=== PATIENT | male | born 1950 | race Caucasian/White ===

== ENCOUNTER → 2023-01-06 09:34 | Outpatient (REF) | payer MEDICARE, SELFPAY ==
--- NOTE | 2023-01-06 09:41 | CA_ITS ---
Transthoracic Echocardiogram Patient (Last, First, Middle): Kris Saenz, Gender: Male Date of : 1950 Age: 72 Procedure Date: 01/06/2023 Procedure Type: Transthoracic Echocardiogram Location: [facility] Height: 177.8 cm Weight: 86.18 kg BSA: 2.04 m2 Heart Rate: 65 bpm BP: 135 / 60 mmHg [employer] Sales Representative: ARTHUR Sheppard MD: Danish Merino MD Mop Man: Prem Araiza MD Symptoms: I48.0 AFIB Study Quality: Fair ECG Rhythm: Sinus Conclusions: - 1. Technically limited study due to poor parasternal views although with definity contrast apical views are of adequate quality 2. Normal LV systolic function with LVEF of 65-70% with mild LVH with pseudonormal filling pattern 3. Mildly dilated left atrium 4. Moderate aortic stenosis with mean gradient of 20 mmHg 5. No gross pericardial effusion Findings Procedure Information Contrast agent, definity, is being given per protocol without apparent complications. Left Ventricle Normal left ventricular size and systolic function. There is mildly increased left ventricular wall thickness. The visually estimated ejection fraction is between 65-70%. There is no evidence of regional wall motion abnormalities. Spectral Doppler is indicative of a pseudonormal filling pattern. E/E prime ratio is between 8 and 15 consistent with indeterminate filling pressures. Right Ventricle The right ventricle was not well visualized. There is normal right ventricular systolic function. Atria The left atrium is mildly dilated. Interatrial shunt cannot be excluded. The right atrium was not well visualized. Aortic Valve The aortic valve was not well visualized. There is moderate calcification of the aortic valve. There is moderate aortic valve stenosis. The peak aortic gradient is 32 mmHg.The mean gradient is 20 mmHg. The aortic valve area is 1.33 cm2. There is no aortic valve regurgitation. Mitral Valve The mitral valve was not well visualized. There is moderate mitral annular calcification. There is no mitral valve regurgitation. There is no mitral valve stenosis. Pulmonic Valve The pulmonic valve was not well visualized. Tricuspid Valve The tricuspid valve was not well visualized. Tricuspid regurgitation envelope is inadequate for calculation of right ventricular systolic pressure. Normal right atrial pressure. Great Vessels The aorta was not well visualized. The pulmonary artery was not well visualized. Venous The inferior vena cava is normal in size and collapses greater than 50% with inspiration. Pericardium/Pleural There is no evidence of pericardial effusion. Prior Study Comparison No prior study available for comparison. Measurements 2D Linear Measurements IVSd: 1.36 0.6-0.9/0.6-1.0 cm LVIDd: 4.70 3.9-5.3/4.2-5.9 cm LVIDd Index: 2.30 2.4-3.2/2.2-3.1 cm/m2 LVPWd: 1.30 0.7-1.1 cm LV Mass: 306.66 67-162/88-224 g LV Mass Index: 150.32 43-95/49-115 g/m2 LVOT Diam: 2.10 3.0+(-)1.3 cm 2D Systolic Function EF 4C: 69.10 >55% EF 2C: 64.10 >55% EF BiP: 67.50 >55% Mitral Valve MV Pk E: 0.96 MV PK A: 0.84 MV Decel Time: 293.00 E/A: 1.10 E'Lateral: 9.57 E'Medial: 5.11 E/E' Med: 18.80 E/E' Lat: 10.00 PHT: 86.00 MVA PHT: 2.56 Decel [place]: 3.28 Aortic Valve AoV Pk Ernesto: 2.83 AoV Mn Ernesto: 2.11 AoV VTI: 0.69 AoV Pk Grad: 32.00 Aov Mn Grad: 20.00 MICHELLE Cont.VTI: 1.33 LVOT LVOT Pk Ernesto: 1.05 LVOT Mn Ernesto: 0.81 LVOT VTI: 0.27 LVOT Pk Grad: 4.00 LVOT Mn Grad: 3.00 LVOT Diam: 2.10 LVOT Area: 3.46 Diastolic Function MV Pk E: 0.96 MV Pk A: 0.84 E/A: 1.10 E'Medial: 5.11 E/E' Med: 18.80 E' Laterial: 9.57 E/E' Lat: 10.00 Right Ventricle TAPSE (mm): 32.50 TVS' Ernesto: 17.30 Tricuspid Valve RA Press: 3.00 Great Vessels Aorta Sinus of Valsalva: 4.10 2.0-3.5 cm Ao Asc: 3.20 2.1-3.4 cm Pulmonary Valve PV Pk Ernesto: 1.00 Peak PV Grad: 4.00 Updated in Other Vendor System with Status of Final Prem Araiza MD electronically signed on 01/08/2023 12:06:55 PM with status of Final
== END ==
LOC: HO.CARD 09:34
PROVIDERS: Visit Provider Internal Medicine Cardiovascular Disease
DX: I48.0 Paroxysmal atrial fibrillation (principal)
CPT/HCPCS: 93306; Q9957